=== PATIENT | female | born 1990 | race Caucasian/White ===

== ENCOUNTER → 2021-08-15 08:16 | Outpatient (CLI) | payer OTHER, SELFPAY ==
--- NOTE | ~2021-08-15 | US_ITS ---
EXAMINATION: US breast LT limited HISTORY: Palpable lump in the subareolar aspect of the left breast TECHNIQUE: Limited left breast ultrasound was performed. FINDINGS: There is a 2.1 x 1.0 cm oval, circumscribed, parallel, hypoechoic mass with mixed posterior features and no internal vascularity in the subareolar aspect of the breast. An adjacent 6 mm x 5 mm mass with similar sonographic features is also noted. IMPRESSION: Subareolar left breast masses which may represent the patient's baseline however no comparison is cur rently available. BI-RADS Category 0: Incomplete: Needs comparison with prior ultrasound. Reviewed, dictated and finalized at location A. IMPRESSION: Subareolar left breast masses which may represent the patient's baseline howeve r no comparison is currently available. BI-RADS Category 0: Incomplete: Needs comparison with prior ultrasound.
== END ==
PROVIDERS: PCP Nurse Practitioner Family; Visit Provider Nurse Practitioner Family
DX: N64.4 Mastodynia (principal); Z80.3 Family history of malignant neoplasm of breast; R92.8 Other abnormal and inconclusive findings on diagnostic imaging of breast
CPT/HCPCS: 76642